=== PATIENT | female | born 1990 | race Caucasian/White ===

== ENCOUNTER 2016-08-05 20:50 | Emergency (ER) | payer OTHER ==
[2016-12-25] MEDS ORDERED: COLACE 100MG C100 MG PO (14:24)
== END 2016-08-06 02:00 | disposition home or self-care (01) ==
LOC: ER1 20:50
DX: O98.312 Other infections with a predominantly sexual mode of transmission complicating pregnancy, second trimester (principal); A59.01 Trichomonal vulvovaginitis; B37.3 Candidiasis of vulva and vagina; Z3A.18 18 weeks gestation of pregnancy
CPT/HCPCS: 99283

== ENCOUNTER → 2016-10-01 | Outpatient (CLI) | payer OTHER ==
[~2016-10-01] MED LIST: COLACE 100MG C100 MG PO
== END ==
LOC: GENOP 19:36
DX: O99.89 Other specified diseases and conditions complicating pregnancy, childbirth and the puerperium (principal); R10.9 Unspecified abdominal pain; Z3A.28 28 weeks gestation of pregnancy
CPT/HCPCS: 81001; 82731; G0463

== ENCOUNTER 2020-09-09 15:06 | Emergency (ER) | payer OTHER ==
[~2020-09-09 15:06] MED LIST changes: +BENTYL 20MG TAB20 MG PO; +CIPRO HC OTIC S10 ML EARBOTH; +IBUPROFEN600 MG PO; +IBUPROFEN800 MG PO; +NAPROSYN500 MG PO; +PROTONIX40 MG PO; +SILVADENE20 GM TP; +TORADOL 10 MG T10 MG PO; +ZOFRAN4 MG PO
[2020-09-09 16:48] LABS: HEMOGLOBIN 15.5 gm/dl (12.3-15.3); RED BLOOD COUNT 4.9 M/UL (4.00-5.10); WHITE BLOOD COUNT 10.2 K/UL (4.5-11.0)
[2020-09-09 17:15] LABS: BUN/CREATININE RATIO 19 (0-10)
== END 2020-09-09 20:46 | disposition home or self-care (01) ==
LOC: ER1 15:06
PROVIDERS: Emergency Medicine
DX: K92.1 Melena (principal)
CPT/HCPCS: 80053; 81001; 83690; 84703; 85025; 96374; 96375; 99284; J1885; J2405; J7030; Q9967

== ENCOUNTER 2020-11-30 19:05 | Emergency (ER) | payer OTHER ==
[2020-11-30 20:22] LABS: HEMOGLOBIN 15.2 gm/dl (12.3-15.3); RED BLOOD COUNT 4.76 M/UL (4.00-5.10); WHITE BLOOD COUNT 8.7 K/UL (4.5-11.0)
[2020-11-30 20:46] LABS: BUN/CREATININE RATIO 6 (0-10)
[2020-11-30] MEDS ORDERED: K-PHOS NEUTRAL250 MG PO (22:46)
[2020-11-30] MEDS ORDERED: K-DUR TAB 20 M20 MEQ PO (22:46)
== END 2020-11-30 23:07 | disposition home or self-care (01) ==
LOC: ER1 19:05
PROVIDERS: Emergency Medicine
DX: U07.1 COVID-19 (principal); E87.6 Hypokalemia; E83.39 Other disorders of phosphorus metabolism
CPT/HCPCS: 0240U; 70450; 71045; 80053; 81001; 83605; 83735; 84100; 85025; 87040; 87086; 96374; 99284; J1885; Q9967

== ENCOUNTER 2021-03-29 08:21 | Emergency (ER) | payer BC, OTHER ==
[~2021-03-29 08:21] MED LIST changes: +K-DUR TAB 20 M20 MEQ PO; +K-PHOS NEUTRAL250 MG PO
[2021-03-29 08:59] LABS: HEMOGLOBIN 14.7 gm/dl (12.3-15.3); RED BLOOD COUNT 4.59 M/UL (4.00-5.10)
[2021-03-29 09:54] LABS: BUN/CREATININE RATIO 11 (0-10)
[2021-03-29] MEDS ORDERED: NAPROXEN500 MG PO (10:09)
== END 2021-03-29 10:27 | disposition home or self-care (01) ==
LOC: ER1 08:21
PROVIDERS: Physician Assistant Medical
DX: M25.562 Pain in left knee (principal); F17.210 Nicotine dependence, cigarettes, uncomplicated
CPT/HCPCS: 73564; 80053; 84550; 85025; 85652; 86140; 96372; 99283; J1885

== ENCOUNTER 2021-07-30 12:24 | Emergency (ER) | payer OTHER ==
[~2021-07-30 12:24] MED LIST changes: +NAPROXEN500 MG PO
[2021-07-30] MEDS ORDERED: NAPROSYN500 MG PO (13:46)
== END 2021-07-30 14:05 | disposition home or self-care (01) ==
LOC: ER1 12:24
DX: M25.562 Pain in left knee (principal)
CPT/HCPCS: 73564; 99283

== ENCOUNTER → 2021-08-17 | Outpatient (CLI) | payer OTHER | LOC: KOH-I 13:40 | DX: M25.562 Pain in left knee (principal); M25.462 Effusion, left knee; S83.207A Unspecified tear of unspecified meniscus, current injury, left knee, initial encounter; M22.42 Chondromalacia patellae, left knee | CPT/HCPCS: 73721 ==

== ENCOUNTER 2021-08-26 22:07 | Emergency (ER) | payer OTHER ==
[2021-08-26 22:31] LABS: RED BLOOD COUNT 4.46 M/UL (4.00-5.10); WHITE BLOOD COUNT 9.3 K/UL (4.5-11.0)
[2021-08-26 22:51] LABS: BUN/CREATININE RATIO 18 (0-10)
== END 2021-08-27 00:05 | disposition home or self-care (01) ==
LOC: ER1 22:07
PROVIDERS: Student in an Organized Health Care Education/Training Program
DX: M79.632 Pain in left forearm (principal); M79.602 Pain in left arm; R42 Dizziness and giddiness
CPT/HCPCS: 70450; 71045; 72125; 72128; 72131; 72170; 73090; 80053; 83605; 85025; 85610; 85730; 99284; G0480

== ENCOUNTER 2021-11-22 05:37 | Emergency (ER) | payer OTHER ==
[2021-11-22 06:05] LABS: HEMOGLOBIN 14.3 gm/dl (12.3-15.3); RED BLOOD COUNT 4.53 M/UL (4.00-5.10); WHITE BLOOD COUNT 9.6 K/UL (4.5-11.0)
[2021-11-22 06:59] LABS: BUN/CREATININE RATIO 15 (0-10)
[2021-11-22] MEDS ORDERED: ZOFRAN 4 MG TAB4 MG PO (09:42)
== END 2021-11-22 10:00 | disposition home or self-care (01) ==
LOC: ER1 05:37
PROVIDERS: Family Medicine
DX: R10.9 Unspecified abdominal pain (principal); K21.9 Gastro-esophageal reflux disease without esophagitis; E78.5 Hyperlipidemia, unspecified; F17.210 Nicotine dependence, cigarettes, uncomplicated
CPT/HCPCS: 80053; 81001; 83690; 84703; 85025; 96374; 99284; J1885; Q9967